=== PATIENT | male | born 2000 | race Hispanic/Latino ===

== ENCOUNTER 2022-12-06 18:09 | Emergency (ER) | payer SELFPAY ==
[2022-12-06] MEDS ORDERED: Ondansetron PF 4 MG/2 ML Vial ONE (18:47)
[2022-12-06 18:58] LABS: #Basophils 0.1 10x3/uL (0.0-0.2); #Eosinphils 0.1 10x3/uL (0.0-0.5); #Monocytes 0.6 10x3/uL (0.0-1.1); #Neutrophils 10.4 10x3/uL (1.5-8.4); %Basophils 0.7 % (0.0-2.0); %Eosinophils 0.4 % (0.0-6.0); %Lymphocytes 7.5 % (18.0-47.0); %Monocytes 4.9 % (0.0-10.0); %Neutrophils 86.3 % (40.0-75.0); Hematocrit 49.3 % (38.8-50.0); Hemoglobin 17.9 g/dL (13.5-17.5); Mean Corpuscular HGB CONC 36.3 g/dL (32.0-36.0); Mean Corpuscular Hemoglobin 31.3 pg (27.0-33.0); Mean Corpuscular Volume 86.2 fl (81.2-95.1); Mean Platelet Volume 10.2 fl (7.4-10.4); Platelet Count 281 10x3/uL (150-450); RBC Distribution Width 11.6 % (11.5-14.5); Red Blood Cell (RBC) Count 5.72 10x6/uL (4.32-5.72)
[2022-12-06 19:06] LABS: ALT (SGPT) 101 U/L (8-55); AST (SGOT) 69 U/L (5-34); Albumin 6.1 g/dL (3.5-5.0); Alkaline Phosphatase 104 U/L (40-110); Anion Gap 30 mmol/L (10-20); BUN (Urea Nitrogen) 17 mg/dL (8.9-20.6); Bilirubin, Total 0.8 mg/dL (0.2-1.2); CK (CPK) 964 U/L (30-200); Calc. Creatinine Clearance 0 mL/min (70-130); Calcium 11.5 mg/dL (7.8-10.44); Carbon Dioxide 21 mmol/L (22-29); Chloride 93 mmol/L (98-107); Estimated GFR 29; Globulin 4.2 g/dL (2.4-3.5); Glucose 111 mg/dL (70-105); Potassium 4.1 mmol/L (3.5-5.1); Protein, Total 10.3 g/dL (6.0-8.3); Sodium 140 mmol/L (136-145)
== END 2022-12-06 22:15 | disposition home or self-care (01) ==
LOC: CSHERS 18:09
DX: T67.5XXA Heat exhaustion, unspecified, initial encounter (principal)
CPT/HCPCS: 80053; 82550; 85025; 96361; 96374; J2405